=== PATIENT | female | born 1945 | race Caucasian/White ===

== ENCOUNTER 2025-04-09 23:41 | Inpatient (IN) | payer MEDICARE, BC ==
[2025-04-10 00:27] LABS: #Basophils 0.07 10x3/uL (0.0-0.2); #Eosinophils 0.06 10x3/uL (0.0-0.7); #Monocytes 0.95 10x3/uL (0.11-0.59); #Neutrophils 6.80 10x3/uL (1.40-6.50); %Basophils 0.7 % (0.0-1.0); %Eosinophils 0.6 % (0.0-10.0); %Lymphocytes 15.1 % (21.0-51.0); %Monocytes 10.1 % (0.0-10.0); %Neutrophils 72.8 % (42.0-75.0); Hematocrit 41.8 % (36.0-47.0); Hemoglobin 13.8 g/dL (12.0-16.0); Mean Corpuscular Hemoglobin 28.6 pg (27.0-31.0); Mean Corpuscular Volume 86.7 fL (78.0-98.0); Platelet Count 220 10x3/uL (130-400); Red Blood Cell (RBC) Count 4.82 mill/uL (4.20-5.40); White Blood Cell (WBC) Count 9.36 10x3/uL (4.8-10.8)
[2025-04-10 00:41] LABS: ALT (SGPT) 24 U/L (Less than 34); AST (SGOT) 30 U/L (11-34); Albumin 4.1 g/dL (3.1-4.5); Alkaline Phosphatase 102 U/L (40-110); Anion Gap 17 mmol/L (10-20); BUN (Urea Nitrogen) 15 mg/dL (9.8-20.1); Bilirubin, Total 0.8 mg/dL (0.3-1.2); Calc. Creatinine Clearance 0 mL/min (70-130); Calcium 9.7 mg/dL (7.8-10.44); Carbon Dioxide 22 mmol/L (23-31); Chloride 105 mmol/L (98-107); Globulin 3.2 g/dL (2.4-3.5); Glucose 157 mg/dL (83-110); Potassium 2.9 mmol/L (3.5-5.1); Sodium 141 mmol/L (136-145)
[2025-04-10] MEDS ORDERED: dilTIAZem 25 MG/5 ML VIAL ONE (00:41)
[2025-04-10] MEDS ORDERED: Aspirin Chewable 81 MG TAB ONE (01:32)
[2025-04-10] MEDS ORDERED: Potassium Chloride 20 MEQ (100 mL) BAG ONE (01:32)
[2025-04-10] MEDS ORDERED: Enoxaparin 80 MG (0.8 mL) SYRINGE ONE (01:32)
[2025-04-10] MEDS ORDERED: Enoxaparin 100 MG (1 mL) SYRINGE ONE (02:08)
[2025-04-10] MEDS ORDERED: Potassium Bicarbonate/Cit Ac 20 MEQ TAB ONE (02:08)
[2025-04-10] MEDS ORDERED: Melatonin 3 MG TAB PO PRN ×2 (04:16→07:10)
[2025-04-10] MEDS ORDERED: Bisacodyl 10 MG SUPP PR PRN (04:16)
[2025-04-10] MEDS ORDERED: Senokot S 8.6-50 MG TAB PO PRN ×2 (04:16→07:11)
[2025-04-10] MEDS ORDERED: Calcium Carbonate 500 MG ChewTAB PO PRN (04:16)
[2025-04-10] MEDS ORDERED: Dextrose 50% Abboject 50 ML SYRINGE SLOW IVP PRN (05:25)
[2025-04-10] MEDS ORDERED: Glucagon 1 MG/ML KIT IM PRN (05:25)
[2025-04-10 05:51] LABS: Anion Gap 15 mmol/L (10-20); BUN (Urea Nitrogen) 15 mg/dL (9.8-20.1); Calc. Creatinine Clearance 0 mL/min (70-130); Calcium 9.1 mg/dL (7.8-10.44); Carbon Dioxide 21 mmol/L (23-31); Chloride 110 mmol/L (98-107); Glucose 179 mg/dL (83-110); Potassium 3.4 mmol/L (3.5-5.1); Sodium 143 mmol/L (136-145)
[2025-04-10 07:13] LABS: Magnesium 1.5 mg/dL (1.6-2.6)
[2025-04-10] MEDS: Aspirin 81 mg Enteric Coated Tablet PO SCH (10:07)
[2025-04-10] MEDS ORDERED: Electrolyte Replacement Protocol 1 EACH FS SCH (12:00)
[2025-04-10] MEDS ORDERED: Potassium Chloride 20 MEQ in Premix 1 BAG IVPB PRN (12:00)
[2025-04-10] MEDS ORDERED: PHOS-NAK 1 PKT PACK PO PRN (12:00)
[2025-04-10] MEDS: Enoxaparin 80 MG (0.8 mL) SYRINGE SC SCH (12:04)
[2025-04-10] MEDS: Diltiazem HCl/D5W 125 MG in Premix 1 BAG IVPB SCH (12:05)
[2025-04-10] MEDS: Magnesium 2 GM/50 ML(in water) 2 GM in Premix 1 BAG IVPB PRN (12:53)
[2025-04-10] MEDS: Acetaminophen 325 MG TAB PO PRN (20:37)
[2025-04-10] MEDS: Insulin Glargine 30 UNITS/0.3 ML VIAL SC SCH (20:38)
[2025-04-11] MEDS: Apixaban 5 MG TAB PO SCH ×2 (00:16→08:40)
[2025-04-11] MEDS: Metoprolol Succinate XL 25 MG ER.TAB PO SCH (00:16)
[2025-04-11 04:55] LABS: #Basophils 0.04 10x3/uL (0.0-0.2); #Eosinophils 0.03 10x3/uL (0.0-0.7); #Monocytes 0.95 10x3/uL (0.11-0.59); #Neutrophils 6.51 10x3/uL (1.40-6.50); %Basophils 0.5 % (0.0-1.0); %Eosinophils 0.3 % (0.0-10.0); %Lymphocytes 12.7 % (21.0-51.0); %Monocytes 10.9 % (0.0-10.0); %Neutrophils 75.0 % (42.0-75.0); Hematocrit 36.0 % (36.0-47.0); Hemoglobin 12.1 g/dL (12.0-16.0); Mean Corpuscular Hemoglobin 29.2 pg (27.0-31.0); Mean Corpuscular Volume 87.0 fL (78.0-98.0); Platelet Count 191 10x3/uL (130-400); Red Blood Cell (RBC) Count 4.14 mill/uL (4.20-5.40); White Blood Cell (WBC) Count 8.68 10x3/uL (4.8-10.8)
[2025-04-11 05:21] LABS: Anion Gap 11 mmol/L (10-20); BUN (Urea Nitrogen) 12 mg/dL (9.8-20.1); Calc. Creatinine Clearance 77 mL/min (70-130); Calcium 8.8 mg/dL (7.8-10.44); Carbon Dioxide 21 mmol/L (23-31); Chloride 113 mmol/L (98-107); Glucose 144 mg/dL (83-110); Potassium 3.4 mmol/L (3.5-5.1); Sodium 142 mmol/L (136-145)
[2025-04-11 06:45] LABS: Magnesium 1.8 mg/dL (1.6-2.6)
[2025-04-11] MEDS: Diltiazem HCl/D5W 125 MG in Premix 1 BAG IVPB SCH ×2 (08:39→21:47)
[2025-04-11] MEDS: Metoprolol Succinate XL 50 MG ER.TAB PO SCH (08:40)
[2025-04-11] MEDS: Losartan 25 MG TAB PO SCH (08:52)
[2025-04-11] MEDS: Magnesium 2 GM/50 ML(in water) 2 GM in Premix 1 BAG IVPB SCH (12:21)
[2025-04-11] MEDS: Furosemide 40 MG (4 mL) VIAL SLOW IVP SCH (14:42)
[2025-04-11 16:09] LABS: Anion Gap 16 mmol/L (10-20); BUN (Urea Nitrogen) 12 mg/dL (9.8-20.1); Calc. Creatinine Clearance 65 mL/min (70-130); Calcium 9.5 mg/dL (7.8-10.44); Carbon Dioxide 19 mmol/L (23-31); Chloride 109 mmol/L (98-107); Glucose 107 mg/dL (83-110); Potassium 4.0 mmol/L (3.5-5.1); Sodium 140 mmol/L (136-145)
[2025-04-12 06:00] LABS: Anion Gap 16 mmol/L (10-20); BUN (Urea Nitrogen) 13 mg/dL (9.8-20.1); Calc. Creatinine Clearance 67 mL/min (70-130); Calcium 8.9 mg/dL (7.8-10.44); Carbon Dioxide 21 mmol/L (23-31); Chloride 109 mmol/L (98-107); Glucose 145 mg/dL (83-110); Potassium 3.3 mmol/L (3.5-5.1); Sodium 143 mmol/L (136-145)
[2025-04-12] MEDS: Potassium Bicarbonate/Cit Ac 20 MEQ TAB PO SCH (10:43)
[2025-04-12] MEDS: FLU (Fluad Triv) 25-26 (65UP)PF 45 MCG/0.5 ML Syringe IM ONE (20:17)
[2025-04-13 05:15] LABS: Anion Gap 15 mmol/L (10-20); BUN (Urea Nitrogen) 18 mg/dL (9.8-20.1); Calc. Creatinine Clearance 61 mL/min (70-130); Calcium 8.9 mg/dL (7.8-10.44); Carbon Dioxide 21 mmol/L (23-31); Chloride 108 mmol/L (98-107); Glucose 126 mg/dL (83-110); Magnesium 1.8 mg/dL (1.6-2.6); Potassium 3.1 mmol/L (3.5-5.1); Sodium 141 mmol/L (136-145)
[2025-04-13] MEDS: Potassium Bicarbonate/Cit Ac 20 MEQ TAB PO SCH ×2 (10:21→14:01)
[2025-04-13] MEDS: Magnesium 2 GM/50 ML(in water) 2 GM in Premix 1 BAG IVPB SCH (10:25)
[2025-04-14 04:49] LABS: Anion Gap 13 mmol/L (10-20); BUN (Urea Nitrogen) 17 mg/dL (9.8-20.1); Calc. Creatinine Clearance 65 mL/min (70-130); Calcium 8.7 mg/dL (7.8-10.44); Carbon Dioxide 22 mmol/L (23-31); Chloride 109 mmol/L (98-107); Glucose 97 mg/dL (83-110); Potassium 3.3 mmol/L (3.5-5.1); Sodium 141 mmol/L (136-145)
[2025-04-14] MEDS: Potassium Bicarbonate/Cit Ac 20 MEQ TAB PO SCH ×2 (10:18)
[2025-04-14] MEDS: Diltiazem HCl/D5W 125 MG in Premix 1 BAG IVPB SCH (23:16)
[2025-04-15 06:43] VITALS: BMI 34.9
[2025-04-15] MEDS ORDERED: PROPOFOL 200 MG/20 ML VIAL ONE (11:10)
[2025-04-15] MEDS ORDERED: Lidocaine 1% PF 5 ML VIAL ONE (11:10)
[2025-04-15] MEDS ORDERED: Diltiazem HCl/D5W 125 MG in Premix 1 BAG IVPB SCH (11:40)
[2025-04-16 12:15] VITALS: BP 160/71; TEMP 98.7
== END 2025-04-16 14:35 | disposition home or self-care (01) | DRG 282 ==
LOC: ERS 23:41 → ERHOLD 04-10 04:31 → 2NO 04-10 08:19
PROVIDERS: ADMIT Internal Medicine; ATTEND Internal Medicine
PROC: 5A2204Z Restoration of Cardiac Rhythm, Single (ICD-10-PCS; principal; 2025-04-15)
PROC: B245ZZ4 Ultrasonography of Left Heart, Transesophageal (ICD-10-PCS; 2025-04-15)
DX: I48.0 Paroxysmal atrial fibrillation (principal); I21.A1 Myocardial infarction type 2; E78.5 Hyperlipidemia, unspecified; E11.9 Type 2 diabetes mellitus without complications; I25.10 Atherosclerotic heart disease of native coronary artery without angina pectoris; Z98.890 Other specified postprocedural states; Z95.1 Presence of aortocoronary bypass graft; I50.9 Heart failure, unspecified; I11.0 Hypertensive heart disease with heart failure; Z79.899 Other long term (current) drug therapy; Z79.82 Long term (current) use of aspirin; E87.6 Hypokalemia; Z85.3 Personal history of malignant neoplasm of breast; I48.92 Unspecified atrial flutter; J44.9 Chronic obstructive pulmonary disease, unspecified; I08.1 Rheumatic disorders of both mitral and tricuspid valves; Z79.890 Hormone replacement therapy; Z79.4 Long term (current) use of insulin
CPT/HCPCS: 36415; 36416; 71045; 80048; 80053; 83735; 83880; 84100; 84484; 85025; 92960; 93005; 93010; 93306; 93312; 94760; 96365; 96366; 96372; 96375; 96376; J1650; J1815; J1940; J2704; J3475; J3480

== ENCOUNTER 2025-05-28 09:35 | Emergency (ER) | payer MEDICARE, BC ==
[2025-05-28] MEDS ORDERED: HYDROcodone/Acetaminophen 5/325 mg Tablet ONE ×3 (10:09→12:23)
[2025-05-28 11:50] LABS: #Basophils 0.04 10x3/uL (0.0-0.2); #Eosinophils Less than 0.03 10x3/uL (0.0-0.7); #Monocytes 1.92 10x3/uL (0.11-0.59); #Neutrophils 13.41 10x3/uL (1.40-6.50); %Basophils 0.2 % (0.0-1.0); %Eosinophils 0.0 % (0.0-10.0); %Lymphocytes 5.3 % (21.0-51.0); %Monocytes 11.7 % (0.0-10.0); %Neutrophils 81.8 % (42.0-75.0); Hematocrit 40.7 % (36.0-47.0); Hemoglobin 12.9 g/dL (12.0-16.0); Mean Corpuscular Hemoglobin 27.9 pg (27.0-31.0); Mean Corpuscular Volume 87.9 fL (78.0-98.0); Platelet Count 258 10x3/uL (130-400); Red Blood Cell (RBC) Count 4.63 mill/uL (4.20-5.40); White Blood Cell (WBC) Count 16.40 10x3/uL (4.8-10.8)
[2025-05-28 12:06] LABS: ALT (SGPT) 59 U/L (Less than 34); AST (SGOT) 17 U/L (11-34); Albumin 3.1 g/dL (3.1-4.5); Alkaline Phosphatase 163 U/L (40-110); Anion Gap 14 mmol/L (10-20); BUN (Urea Nitrogen) 15 mg/dL (9.8-20.1); Bilirubin, Total 1.8 mg/dL (0.3-1.2); Calc. Creatinine Clearance 0 mL/min (70-130); Calcium 9.1 mg/dL (7.8-10.44); Carbon Dioxide 25 mmol/L (23-31); Chloride 98 mmol/L (98-107); Globulin 3.6 g/dL (2.4-3.5); Glucose 203 mg/dL (83-110); Potassium 3.0 mmol/L (3.5-5.1); Sodium 134 mmol/L (136-145)
[2025-05-28] MEDS ORDERED: HYDROcodone/Acetaminophen 7.5/325 mg Tablet ONE (17:43)
== END 2025-05-28 17:56 ==
LOC: ERS 09:35
DX: M25.562 Pain in left knee (principal); M79.672 Pain in left foot; R26.89 Other abnormalities of gait and mobility; D72.829 Elevated white blood cell count, unspecified; E11.9 Type 2 diabetes mellitus without complications; I10 Essential (primary) hypertension; Z79.899 Other long term (current) drug therapy; I48.91 Unspecified atrial fibrillation; Z79.01 Long term (current) use of anticoagulants; Z79.4 Long term (current) use of insulin
CPT/HCPCS: 80053; 85025; 99284